=== PATIENT | female | born 1940 | race Caucasian/White ===

== ENCOUNTER 2016-09-30 12:59 | Inpatient (IN) | payer MEDICARE ==
[~2016-09-30] VITALS: Ht 154.9 cm; Wt 72.6 kg
[~2016-09-30 12:59] MED LIST: ACETAMINOPHEN500 M1 PO; COREG6.25 MG PO; ISOSORBIDE MONO30 M1 PO; LANTUS SOL100 UNIT/1 SC; LISINOPRIL-HCTZ1 T11 PO; NEURONTIN 400400 MG PO; PRAVACHOL40 MG PO; PRILOSEC20 MG PO; ULTRAM50 MG PO
[2016-09-30 14:13] LABS: BASOPHILS 0.2 % (0-2); EOSINOPHILS 6.8 % (0-7); HEMATOCRIT 39.6 % (36.0-48.0); HEMOGLOBIN 12.4 g/dL (12-16); IMMATURE GRANULOCYTES 0.2 % (0-5); LYMPHOCYTES 31.6 % (15-50); MCH 30.5 pg (26.0-34.0); MCHC 31.3 g/dL (31.0-37.0); MCV 97.3 fL (80.0-100.0); MEAN PLATELET VOLUME 11.9 fL (7.4-10.4); NEUTROPHILS 51.2 % (40-80); PLATELET COUNT 207 10x3/uL (130-400); RBC 4.07 10x6/uL (4.00-5.40); RDW 13.9 % (11.5-14.5); WBC 4.1 10x3/uL (4.8-10.8)
[2016-09-30 14:54] LABS: ALBUMIN 3.1 g/dL (3.4-5.0); ANION GAP 10.1 mmol/L (8-16); BILIRUBIN - TOTAL 1.1 mg/dL (0.2-1.3); CALCIUM 9.1 mg/dL (8.5-10.1); CARBON DIOXIDE 30.4 mmol/L (21.0-32.0); CREATININE - SERUM 1.2 mg/dL (0.6-1.3); POTASSIUM - SERUM 4.5 mmol/L (3.5-5.1); PROTEIN - SERUM 7.2 g/dL (6.4-8.2)
--- NOTE | 2016-09-30 15:25 | NUR ---
Received patient from ER via W/C, accompanied per family members, patient with flat affect and crying unconsolable, family crying as well. Allowed family to support each other and allowed to vent. Patient able to verbalize name and . Has a 2 day history of continuous crying, increased anxiety and depression. Son has taken her to see Dr. Levy on yesterday and Xanax was prescribed but has not helped patient. Over last several months she has had a lot of family dynamic with spouse going to correction, brother passing, daughter her three children moving in with her and finacial hardship. She presented to ER and verbalized suicidial ideation. When speaking to patient away from her family she did express how the moving in of daughter and her grand children has " driving me crazy and she does'nt help out financially." crying/sobbing " I'm behind on my trailer payment, lights about to get shut off and I still have to work." allowed patient to vent. " I'm better off if I was just gone." states she has thought of suicide in the past with a plan of " I was going to take my bottle of sleeping medication, but I didnt go through with it." has no current suicide plan and contract for no self harm. Voluntary admission with consent and admission forms completed. Admission handbook given to family with instructions given. All questions answered and family verbalized understanding of information. Patient taken down to dayroom, to continue with visitation per son and daughter. Continues with intermittent crying during her visition. In W/C with chair alarm in place.
[2016-09-30 15:30] VITALS: BP 134/57
[2016-09-30 16:25] LABS: CHOL - HDL RATIO 12.1 ratio (2.3-4.1); LDL-HDL RATIO 5.4 ratio (1.5-3.5)
[2016-09-30 16:33] LABS: HEMOGLOBIN A1C 7.4 % (4.8-6.0)
[2016-09-30] MEDS ORDERED: REQUIP0.5 MG PO (17:40)
--- NOTE | 2016-09-30 17:40 | NUR ---
Patient did sit at dinner table with others with no socialization, following supper she came to dayroom with continuous sobbing, she did get to converse with her son via telephone. Mood unchanged. Provided one on one to express feelings, patient does not want to talk. Safety maintained.
[2016-09-30] MEDS ORDERED: REMERON15 MG/UDTA PO (17:42)
[2016-09-30] MEDS ORDERED: PLAVIX75 MG PO (17:45)
[2016-09-30] MEDS ORDERED: PERPHENAZINE2 MG PO (17:47)
[2016-09-30] MEDS ORDERED: GEMFIBROZIL600 MG PO (17:48)
[2016-09-30] MEDS ORDERED: FENOFIBRATE160 MG PO (17:50)
[2016-09-30] MEDS ORDERED: PROTONIX40 MG PO (17:51)
[2016-09-30] MEDS ORDERED: NITROSTAT0.4 MG SL (17:52)
[2016-09-30] MEDS ORDERED: NIFEDIPINE ER30 MG PO (17:52)
[2016-09-30 18:12] VITALS: BP 134/57; BMI 30.3
[2016-09-30 19:30] VITALS: BP 137/69
--- NOTE | 2016-09-30 19:36 | NUR ---
RECEIVED IN DAYROO. SITTING IN WHEELCHAIR. ASSISTED TO TRANSFERE TO RECLINER. CRYING AT TIMES. DENIES THOUGHTS OF SELF HARM. CALM AND COOPERATIVE WITH CARE AND ASSESSMENTS. ENCOURAGE TO EXPRESS NEEDS AND FEELINGS. CONTINUES TO SIT QUIETLY. CONTINUE PLAN OF CARE
[2016-10-01 08:54] VITALS: BP 161/68
--- NOTE | 2016-10-01 11:14 | NUR ---
B) PATIENT IS FLAT, SHE IS TEARFUL, CRIES AND CRIES, HAS HER HEAD COVERED UP. SHE DOES HAVE A LOT OF SOCIAL ISSUES GOING ON CURRENTLY THAT WOULD CAUSE HER TO BE DEPRESSED. SHE AMBULATES, OR USES A WALKER OR A W/C. I) PROVIDE PRESCRIBED MEDS. R) PROVIDE PRESCRIBED MEDS. P) CONTINUE PLAN OF CARE.
[2016-10-01 19:30] VITALS: BP 82/35
--- NOTE | 2016-10-01 20:51 | PSY ---
PATIENT NAME:LILLIE ACUNA MEDICAL RECORD: [id number] : 40 LOCATION:[facility] ADMISSION DATE: 09/30/16 ACCOUNT: [id number] PSYCHIATRIC EVALUATION DATE OF EVALUATION: 10/01/16 IDENTIFYING DATA: This is a 75-year-old white female, who was admitted because of acute and severe suicidality. HISTORY OF PRESENT ILLNESS: This patient has been under extraordinary personal stress lately. Her was recently imprisoned because of sexual abuse of a minor. The patient currently is having severe financial problems. Her brother recently . Her daughter, son-in-law and children moved in with her. Her trailer is in disrepair. She is working part-time, but does not have enough to make ends meet. Also, her automobile broke down and she is having difficulty with her heating and air conditioning. At the time of admission, the patient was crying virtually nonstop. She has continued to exhibit severe emotional lability since admission. She does have an active plan for suicide. PAST MEDICAL HISTORY: Significant for diabetes, coronary artery disease, lumbar spinal stenosis, hypertension, GERD, irritable bowel syndrome, and hyperlipidemia. FAMILY HISTORY: Noncontributory from a psychiatric standpoint. There is a family history for heart disease. The patient's mother of a heart attack. ALLERGIES: INCLUDE PENICILLIN, SULFONAMIDE ANTIBIOTICS, AND CODEINE. 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 She does not have substance abuse problems. MENTAL STATUS: On interview, the patient is extremely dysphoric. Affect is brittle. Speech is very low in volume and exhibits latency. Content of thought is positive for suicidal ideation. The patient is oriented to person and place as well as to day, month and year. Intermediate and short-term recall do show some minor difficulties. DIAGNOSTIC IMPRESSION: AXIS I: Major depression and depressive disorder -- suicidal. AXIS II: No diagnosis. AXIS III: Coronary artery disease, diabetes, hypertension, lumbar spinal stenosis, gastroesophageal reflux disease, irritable bowel syndrome. AXIS IV: Severe. AXIS V: 30. PLAN: 1. The patient will be admitted for further stabilization. 2. Antidepressant regimen will be augmented with trazodone 50 mg b.i.d. and 150 mg h.s. and this will be given in addition to Remeron 15 mg h.s. 3. Daily supportive therapy. TRANSINT:[id number] Voice Confirmation ID: [id number] DOCUMENT ID: [id number] HANNAH HARKINS III, MD at 2051 CC: [id number] DICTATION DATE: 10/01/16 1157 REGISTRAR ASSISTANT: 10/01/16 1231 ADM IN [facility] [address] [id number]
--- NOTE | 2016-10-02 01:57 | NUR ---
B) Recieved patient in the hallway, alert and oriented X 3, patient is sad and depressed due to multiple family issues, I) Administered perscribed medications, monitored for safety and falls, contracted for safety, R) Medication compliant, tearful at times, P) Continue plan of care.
--- NOTE | 2016-10-02 07:55 | NUR ---
IN AND OUT CATH OBTAINED URINE FOR UA AND C&S, SENT TO LAB.
[2016-10-02 08:05] LABS: APPEARANCE CLOUDY (CLEAR); BILIRUBIN NEGATIVE (NEGATIVE); COLOR YELLOW (YELLOW); GLUCOSE NEGATIVE (NEGATIVE); KETONE NEGATIVE (NEGATIVE); LEUKOCYTE ESTERASE 2+ (NEGATIVE); NITRITE NEGATIVE (NEGATIVE); PROTEIN TRACE mg/dL (NEGATIVE); SPECIFIC GRAVITY 1.015 (1.005-1.020); UROBILINOGEN NORMAL (NORMAL)
[2016-10-02 08:08] LABS: BACTERIA MANY /hpf (NONE SEEN); EPITHELIAL CELLS 0-5 /hpf (0-5); GRANULAR CAST OCC /lpf (NONE SEEN); MUCUS <1+ /lpf (NONE SEEN); RED CELLS - URINE 0-5 /hpf (0-5); WHITE CELLS - URINE >50 /hpf (0-5)
[2016-10-02 10:27] VITALS: BP 110/60
--- NOTE | 2016-10-02 12:01 | NUR ---
B) PATIENT IS AWAKE AND ALERT, SHE IS NOME. SHE IS NOT TEARFUL TODAY, BUT SHE IS SLEEPY AND SHE HAS BEEN NAPPING OFF AND ON. SHE IS SAD. SHE AMBULATES WITH A WALKER. I) PROVIDE PRESCRIBED MEDS AND REDIRECT NEEDED. R) PATIENT IS CALM AND PLEASANT. SHE DID TAKE A SHOWER AND SHE IS COMPLIANT. P) CONTINUE PLAN OF CARE.
[2016-10-02 14:47] VITALS: Ht 154.9 cm; Wt 72.6 kg
[2016-10-02 21:18] VITALS: BP 110/50
--- NOTE | 2016-10-03 01:59 | NUR ---
B) Recieved patient in the day room, alert and oriented X 3, calm and cooperative, sad and keeping to herself, I) Administered perscribed medications, monitored for falls and safety, contracted for safety, R) Medication compliant, resting now quietly in bed, P) Continue plan of care, continue to monitor.
--- NOTE | 2016-10-03 09:11 | PN ---
PATIENT:LILLIE ACUNA MEDICAL RECORD: [id number] LOCATION:[facility] ADMISSION DATE: 09/30/16 PROGRESS NOTE DATE OF SERVICE: 10/02/2016 SUBJECTIVE: The patient does not offer new complaint. OBJECTIVE: The patient has responded reasonably well to the addition of the trazodone. She is less anxious than before. She remains very dysphoric; however. Additional history has been obtained by case management. 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 She has a daughter with 3 children that had moved in with her, but the son, who is disabled and who also lives with her is impressing the daughter to find another place to stay. As mentioned previously, the patient's has recently been incarcerated because of his second conviction for sexual abuse. On exam, mood is dysphoric. Affect is constricted. Speech is very low in volume and slow in production and rate. Content of thought is still positive for nihilistic thinking. Sensorium is unchanged. ASSESSMENT: No change in diagnosis. PLAN: 1. We will continue with current antidepressant regimen. 2. Continue supportive therapy. TRANSINT:[id number] Voice Confirmation ID: [id number] DOCUMENT ID: [id number] HANNAH HARKINS III, MD at 0911 CC: [id number] DICTATION DATE: 10/02/16 1046 PARKING MANAGER: 10/02/16 1146 ADM IN [id number] [place] [address]
--- NOTE | 2016-10-03 10:45 | NUR ---
B) PATIENT C/O BEING DIZZY, HER BP IS LOW, DR BRODERICK D/C'D SOME OF HER B/P MEDS. SHE REFUSED HER MEDS D/T NOT FEELING WELL, DID NOT WANT BREAKFAST OR INSULIN. MICHAEL CAN WALK WITH A WALKER, BUT SHE ASKED FOR A W/C TODAY. I) PROVIDE PRESCRIBED MEDS. R) PATIENT IS RESTING IN THE [place] CHAIR TODAY. P) CONTINUE PLAN OF CARE.
--- NOTE | 2016-10-03 15:20 | NUR ---
PETROS SON CALLED TO STATE PATIENT'S GAS WAS GOING TO BE CUT OFF. CALLED [facility] AND [facility] TO HAVE THEM ADVISE. DID CALL [facility] AND PATIENT WAS ABLE TO SPEAK WITH THE TOOL INSPECTOR. THE TOOL INSPECTOR SPOKE WITH ME AND EXPLAINED THAT SHE WOULD NEED A PHONE CALL FROM THE SON. CALLED THE SON AND LET HIM BE AWARE OF THE STEPS HE NEEDED TO TAKE. PATIENT IS UPSET AND SHE WAS NOT ABLE TO GIVE THE TOOL INSPECTOR HER OR HER ADDRESS. THE TOOL INSPECTOR SPOKE TO ME AND GOT THE INFORMATION. PATIENT DISTRAUGHT, BUT DID EXPLAIN THAT AFTER SHE D/C'S FROM HERE SHE WILL HAVE SOME INFORMATION THAT CAN HELP HER. PATIENT CALMED DOWN A LITTLE BIT.
[2016-10-03 19:30] VITALS: BP 113/79
--- NOTE | 2016-10-03 19:45 | NUR ---
RECEIVED SITTING IN CHAIR AT NURSES DESK WITH PEER. QUIET AND COOPERATIVE WITH CARE AND ASSESSMENT. DENIES THOUGHTS OF SELF-HARM. BECAME NAUSEATED AND HAD A SMALL AMOUNT OF EMESIS. ENCOURAGE TO EXPRESS FEELINGS AND NEEDS. CONTINUES TO SIT QUIETLY. CONTINUE PLAN OF CARE.
[2016-10-04 07:35] VITALS: BP 105/49
--- NOTE | 2016-10-04 19:19 | NUR ---
PT IS RECEIVED UP IN CHAIR IN FRONT OF NURSE STATION. PT IS ALERT AND ORIENTED X3.PT DENIES SI. PT CONTRACTS FOR SAFETY. NO HALLUCIANTIONS OR DELUSIONS ARE NOTED OR REPORTED. PT HAS BEEN VERY PLEASANT. SHE IS COOPERATIVE WITH STAFF AND IS COMPLIANT WITH MED'S AND CARE. NO AGGRESSION IS NOTED. PT HAD SEVERAL VISITORS AT VISITATION. PT HAS COMPLAINED OF NOT FEELING WELL TODAY. SAFETY MEASURES ARE IMPLEMENTED. CONTINUE WITH PLAN OF CARE. WILL CONTINUE TO MONITOR.
[2016-10-04 19:30] VITALS: BP 112/81
--- NOTE | 2016-10-05 03:06 | NUR ---
B) Recieved Patient in the day room sleeping in a chair, arrouses easily to name, oriented X 3, calm and cooperative, no suicidal ideation this shift, I) Administered perscribed medications, contracted for safety, monitored for safety, R) Medication compliant, no behaviors noted, P) Continue plan of care, continue to monitor.
--- NOTE | 2016-10-05 14:22 | PN ---
PATIENT:LILLIE ACUNA MEDICAL RECORD: [id number] LOCATION:[facility] ADMISSION DATE: 09/30/16 PROGRESS NOTE DATE OF SERVICE: 10/03/2016 SUBJECTIVE: No new complaint. OBJECTIVE: The patient noted to be hypotensive this morning. She had complained earlier of dizziness. On exam, mood is euthymic. Affect is constricted. Speech is slow in rate and low in volume. Content of thought is unchanged. Sensorium unchanged. ASSESSMENT: No change in diagnosis. PLAN: 1. Change trazodone to 100 mg h.s. only. 2. Discontinue Remeron. 3. Begin Lexapro 10 mg daily. TRANSINT:[id number] Voice Confirmation ID: [id number] DOCUMENT ID: [id number] HANNAH HARKINS III, MD at 1422 CC: [id number] DICTATION DATE: 10/03/16 1136 SENIOR PRODUCT ENGINEER: 10/03/16 1901 ADM IN [facility] [address] [id number]
--- NOTE | 2016-10-05 18:28 | NUR ---
Patient in dayroom. She denies suicidal ideation at this time. Patient made verbal aggreement with nurse that she will not self harm. She has been tearful today, due to peer yelling at staff and other patients. Patient talked with nurse regarding her feelings of anxiety. She was encouraged to express her needs. Patient became calm and was watching t.v in dayroom. Continue to monitor, continue plan of care
[2016-10-05 19:30] VITALS: BP 108/73
--- NOTE | 2016-10-05 22:54 | NUR ---
RECEIVED IN DAYROOM. SITTING IN CHAIR WITH PEERS AT HER SIDE. SOCIALIZING AT TIMES. DENIES THOUGHTS OF SELF HARM. CALM AND COOPERATIVE WITH CARE AND ASSESSMENTS. ENCOURAGE TO EXPRESS NEEDS. RESTING EYES CLOSED AT THIS TIME. CONTINUE PLAN OF CARE
--- NOTE | 2016-10-06 12:00 | NUR ---
B.) Received this am alert and oriented times 3. States she really does'nt feel much better, but is not tearful and crying. I.) Administer medications and monitor compliance. Monitor and assess for any suicidial ideation. Contract for safety. Encourage group participation, socialization and expressing of feelings. Teach on positive coping. Monitor safety. R.) Compliant with medications, no suicidial ideations, contracted for no self harm. Participates in group and is social with others in group and at meal time. Affect is still somewhat flat and states she is not really feeling any better. One on one time provided to express feeling and postive coping skills. P.) Continue plan of care.
--- NOTE | 2016-10-06 16:28 | NUR ---
SW SPOKE WITH PT'S SON, PRIYA, ABOUT PT'S DISCHARGE PLANS TO ENTER INTO AN INTENSIVE OUTPATIENT TREATMENT AFTER DISCHARGE. SW PROVIDED HIM WITH RESOURCES TO HELP WITH UTILITY BILLS. PT'S SON VERBALIZED UNDERSTANDING OF PT'S NEEDS AFTER DISCHARGE.
--- NOTE | 2016-10-06 19:59 | NUR ---
RECEIVED IN BEDROOM. LAYING IN BED WITH EYES CLOSED. RESPONDS TO VOICE. ALERT AND ORIENTED. CALM AND COOPERATIVE WITH CARE AND ASSESSMENTS. NO CRYING THIS EVENING. DENIES THOUGHTS OF SELF HARM. ENCOURAGE TO EXPRESS NEEDS. CONTINUES TO REST QUIETLY IN BED. CONTINUE PLAN OF CARE
[2016-10-06 23:31] VITALS: BP 128/59
[2016-10-07 10:14] VITALS: BP 123/56
--- NOTE | 2016-10-07 10:43 | PN ---
PATIENT:LILLIE ACUNA MEDICAL RECORD: [id number] LOCATION:[facility] ADMISSION DATE: 09/30/16 PROGRESS NOTE DATE OF SERVICE: 10/06/2016 SUBJECTIVE: No new complaint. OBJECTIVE: The patient continues to show a fair amount of dysphoria. She continues to have some lability of affect. However, she has been cooperative. She is tolerating the current combination of Lexapro and trazodone. On exam, mood remains rather dysphoric. Affect is constricted. Speech is low in volume and slow in production and rate. Content of thought is still positive for expressions of hopelessness. Sensorium shows no change. ASSESSMENT: No change in diagnosis. PLAN: 1. Continue supportive therapy. 2. Continue medication adjustment as indicated. TRANSINT:[id number] Voice Confirmation ID: [id number] DOCUMENT ID: [id number] HANNAH HARKINS III, MD at 1043 CC: [id number] DICTATION DATE: 10/06/16 1140 ELECTRON BEAM WELDER SETTER: 10/06/162037 ADM IN [place] [id number] [place] [id number]
--- NOTE | 2016-10-07 18:36 | NUR ---
Received this am alert and oriented times three, smiling and is social with others, no tearfullness or crying. Monitor medication compliance. Monitor for any suicidial ideations. Monitor safety. Encourage group participation. Compliant with medications, mood is improved, interacts more with others. Participates in group. No suicidial ideations, contracted for no self harm. Safety maintained. Continue plan of care.
[2016-10-07 19:29] VITALS: BP 117/54
--- NOTE | 2016-10-07 20:57 | NUR ---
RECEIVED IN HALLWAY OUTSIDE OF NURSES STATION. SELF AMBULATING TO BEDROO.. CALM AND COOPERATIVE WITH CARE AND ASSESSMENTS. DENIES THOUGHTS OF SELF HARM. ENCOURAGE TO EXPRESS NEEDS. RESTING IN BED EYES CLOSED. CONTINUES TO EXPRESS NEEDS.
[2016-10-08 08:30] VITALS: BP 114/58
--- NOTE | 2016-10-08 09:47 | PN ---
PATIENT:LILLIE ACUNA MEDICAL RECORD: [id number] LOCATION:[facility] ADMISSION DATE: 09/30/16 PROGRESS NOTE DATE OF SERVICE: 10/07/2016 SUBJECTIVE: No new complaint. OBJECTIVE: Case management has arranged for followup at [facility] outpatient program 3 times a week. The patient is somewhat more cooperative. She is tolerating medications well. Case management will be meeting with family regarding boundary setting. On exam, mood is slightly dysphoric. Affect is reserved. Speech is rather low in volume. Content of thought shows no evidence of psychosis. Sensorium is unchanged. ASSESSMENT: No change in diagnosis. PLAN: 1. Continue all current medications. 2. Continue supportive therapy. TRANSINT:[id number] Voice Confirmation ID: [id number] DOCUMENT ID: [id number] HANNAH HARKINS III, MD at 0947 CC: [id number] DICTATION DATE: 10/07/16 1207 FINISHING SUPERVISOR PLASTIC SHEETS: 10/07/16 2227 ADM IN [facility] [address] [place] [address]
--- NOTE | 2016-10-08 09:59 | NUR ---
Nutrition Follow Up: Pt is eating 30% meal avg on a diabetic diet. Wt stable. +BM 10/07/16. Labs reviewed. Meds noted including Metformin, Lantus. Rec continue current diet. Rec consider an appetite stimulant. RD will continue to monitor pt progress.
--- NOTE | 2016-10-08 10:00 | NUR ---
B) Rec'd pt in dining room for b'fast, alert, appetite good, feeds self, no difficulty swallowing, ambulatory, pleasant mood. I) Meds admin per orders, group activity provided. R) Med compliant with no s/s adverse reaction noted, participates in group activity. P) Cont current plan of care including meds and group activity.
[2016-10-08 20:16] VITALS: BP 98/58
--- NOTE | 2016-10-09 00:44 | NUR ---
B) Recieved sleeping in the day room, arroused to name, alert and oriented X 3, calm and cooperative, excited to leave tomorrow, I) Administered perscribed medications, monitored for falls and safety, contracted for safety, R) Medication compliant, pleasant, P) Continue plan of care.
--- NOTE | 2016-10-09 10:35 | PN ---
PATIENT:LILLIE ACUNA MEDICAL RECORD: [id number] LOCATION:[facility] ADMISSION DATE: 09/30/16 PROGRESS NOTE DATE OF SERVICE: 10/08/2016 SUBJECTIVE: No new complaint. OBJECTIVE: Case management has continued to work with the family. The patient has received good news that the daughter and her children will be moving out next week. Case management worked extensively with family regarding setting boundaries and limits. On exam, mood is euthymic. Affect remains reserved. Speech is low in volume, but otherwise fluent. Content of thought is negative for overt psychosis or suicidality. Sensorium unchanged. ASSESSMENT: No change in diagnosis. PLAN: 1. Maintain current medications. 2. Continue supportive therapy. TRANSINT:[id number] Voice Confirmation ID: [id number] DOCUMENT ID: [id number] HANNAH HARKINS III, MD at 1035 CC: [id number] DICTATION DATE: 10/08/16 1049 BODY DIE MAKER: 10/08/16 2043 ADM IN [facility] [address] [id number]
[2016-10-09] MEDS ORDERED: Levaquin PO (11:55)
[2016-10-09] MEDS ORDERED: TRICOR145 MG PO (11:57)
[2016-10-09] MEDS ORDERED: LISINOPRIL10 MG PO (11:57)
[2016-10-09] MEDS ORDERED: METFORMIN HCL500 M1 PO (11:58)
[2016-10-09] MEDS ORDERED: FLORANEX / LACT1 TAB PO (11:58)
[2016-10-09] MEDS ORDERED: LEXAPRO10 MG PO (12:00)
[2016-10-09] MEDS ORDERED: NEURONTIN 400400 MG PO (12:00)
[2016-10-09] MEDS ORDERED: TRAZODONE HCL50 MG PO (12:01)
--- NOTE | 2016-10-09 13:00 | NUR ---
B) PATIENT IS AWAKE AND ALERT, MEDS CALLED TO PHARMACY, FAXED ALL D/C PAPERWORK TO DR. BURRELL AND [facility], PROVIDED APT FOR PAT AT [facility], PATIENT IS AWARE. I) ENCOURAGE PATIENT TO USE POSITIVE COPING SKILLS. R) PATIENT IS COMPLIANT WITH MEDS. P) CONTINUE PLAN OF CARE.
--- NOTE | 2016-10-09 14:15 | NUR ---
WENT OVER MED LIST WITH PATIENT AND FAMILY, EXPLAINED THAT SHE WILL NEED TO CALL DR. BURRELL FOR AN APPT., PATIENT PACKED AND READY FOR D/C.
--- NOTE | 2016-10-09 14:16 | NUR ---
PATIENT D/C'D WITH FAMILY TO HOME, ALL BELONGINGS WITH PATIENT.
--- NOTE | 2016-10-13 09:57 | DS ---
PATIENT:LILLIE ACUNA :40 MEDICAL RECORD: [id number] DISCHARGE SUMMARY ADMISSION DATE: 09/30/16 DISCHARGE DATE: 10/09/16 DATE OF ADMISSION: 09/30/2016 DATE OF DISCHARGE: 10/09/2016 HISTORY OF PRESENT ILLNESS: This was the first Alf admission for this 75-year-old white female. The patient came in with acute suicidal ideation. She was under considerable domestic stress. Her had recently been imprisoned. She also had several family members living with her and was having severe financial problems. For further details, please see previously dictated history. COURSE IN THE HOSPITAL: The patient was seen in consultation by Dr. Murray. He noted the presence of diabetes type 2, coronary artery disease, hypertension, lumbar spinal stenosis, GERD, irritable bowel syndrome. The patient was managed carefully in terms of her insulin and GERD. Symptoms were managed with Protonix. The patient was kept on previous doses of Requip as well as her cardiac medications. From a psychiatric standpoint, it was elected to place the patient on Lexapro 10 mg daily. She was also maintained on trazodone 100 mg h.s. for insomnia. The patient responded well to this regimen. She showed good resolution of her severe depressive symptoms. During the hospitalization, case management worked very diligently with family and available community resources to provide as much assistance as possible. By the time of discharge, the patient was in stable condition. No longer exhibiting any suicidality. FINAL DIAGNOSES: AXIS I: Major depressive disorder -- recurrent -- improving. AXIS II: No diagnosis. AXIS III: Coronary artery disease, diabetes, hypertension, lumbar spinal stenosis, gastroesophageal reflux disease, irritable bowel syndrome. AXIS IV: Moderate. AXIS V: 45. PLAN: 1. The patient is discharged on current medication. 2. Diet and activities as tolerated. 3. Follow up with primary care physician. TRANSINT:[id number] Voice Confirmation ID: [id number] DOCUMENT ID: [id number] HANNAH HARKINS III, MD at 0957 CC: [id number] DICTATION DATE: 10/09/16 1206 MANAGER PACU: 10/10/16 1146 DIS IN 10/09/[id number] [place] [address]
== END 2016-10-09 14:16 | disposition home or self-care (01) | DRG 885 ==
LOC: D.ER 12:59 → D.PSYCH 15:10
PROVIDERS: Emergency Medicine; ADMIT Psychiatry & Neurology Psychiatry
DX: F33.9 Major depressive disorder, recurrent, unspecified (principal); N39.0 Urinary tract infection, site not specified; I25.10 Atherosclerotic heart disease of native coronary artery without angina pectoris; E11.9 Type 2 diabetes mellitus without complications; I10 Essential (primary) hypertension; M48.06 Spinal stenosis, lumbar region; K21.9 Gastro-esophageal reflux disease without esophagitis; K58.9 Irritable bowel syndrome, unspecified; F41.9 Anxiety disorder, unspecified; B96.20 Unspecified Escherichia coli [E. coli] as the cause of diseases classified elsewhere; B96.1 Klebsiella pneumoniae [K. pneumoniae] as the cause of diseases classified elsewhere; E78.5 Hyperlipidemia, unspecified; K55.20 Angiodysplasia of colon without hemorrhage